=== PATIENT | female | born 1980 | race Caucasian/White ===

== ENCOUNTER 2023-01-31 13:00 | Outpatient (CLI) | payer BC, SELFPAY ==
--- NOTE | 2023-01-31 13:00 | DI.RAD_ITS ---
Exam(s) XR SHOULDER LT COMPLETE 2+V EXAM: XR SHOULDER LT COMPLETE 2+V CLINICAL HISTORY: Left shoulder pain. TECHNIQUE: 2D digital imaging was performed of the left shoulder. Two images were obtained. AP and axillary views were obtained. COMPARISON: No exams were available for comparison FINDINGS: BONES: No acute fracture is present. No bony destructive lesion is seen. JOINTS: No dislocation present. SOFT TISSUE: There is calcification in the soft tissue adjacent to the greater tuberosity suggesting calcific tendinitis. IMPRESSION: Calcific tendinitis. DATA REPOSITORY: RADIATION DOSE DELIVERED:
== END 2023-01-31 13:01 | disposition home or self-care (01) ==
PROVIDERS: Visit Provider Student in an Organized Health Care Education/Training Program
DX: M25.512 Pain in left shoulder (principal); M75.32 Calcific tendinitis of left shoulder
CPT/HCPCS: 73030

== ENCOUNTER 2023-02-20 01:18 | Outpatient (CLI) | payer BC, SELFPAY ==
--- NOTE | 2023-02-20 07:45 | DI.MRI_ITS ---
Exam(s) MR UPPER JOINT LT WO EXAM: MR UPPER JOINT LT WO CLINICAL HISTORY: ? ROTATOR CUFF TEAR,ADHESIVE CAPSULITIS,LT ROTATOR CUFF TEAR,M75.102,M75.02 TECHNIQUE: Multiplanar multisequence MRI of the shoulder was performed. COMPARISON: CR XR SHOULDER LT COMPLETE 2+V from 01/31/2023 FINDINGS: MARROW:There is no evidence of fracture, Hill-Sachs deformity, nor ominous osseous lesions. ROTATOR CUFF MECHANISM: AC JOINT/ACROMIUM: Mild degenerative changes in the AC joint. There is no evidence of os acromiale. Supraspinatus: There are 2 adjacent hypointense foci medially above the most anterior aspect of the g reater tuberosity and corresponding to the calcific densities seen on plain film. These are associat ed with the most anterior aspect of the supraspinatus tendon foot pad insertion site. The larger of these 2 calcifications measures 10 by 5 mm. There is some thickening and increased signal within the tendon at this level but no high-grade tear no retraction of the musculotendinous junction and there is no muscle atrophy. Infraspinatus: Intact. No evidence of tear nor muscle atrophy. Teres Minor: Intact. No evidence of tear nor muscle atrophy. Subscapularis/anterior cuff: Intact. No abnormal signal at the level of the multipennate insertional fibers. No significant tear nor atrophy. BICEPS TENDON: Normal position. Not displaced from the intertubercular groove. No tear. LABRUM: No labral tear identified. No evidence of paralabral cyst. LABROLIGAMENTOUS/CAPSULAR COMPLEX: There is no evidence of avulsion of the anterior-inferior labrum, capsule, inferior glenohumeral liga ment complex nor disruption of the scapular periosteum to suggest the presence of a Bankart lesion. GLENOHUMERAL JOINT: No prominent joint effusion nor obvious loose intra-articular bodies. No chondra l defects. No osteophytes. No degenerative subarticular cysts. No evidence of capsular tear. The in ferior glenohumeral ligament is intact. QUADRILATERAL SPACE: No evidence of mass in the region of the axillary nerve and dorsal circumflex hu meral vessels. Visualized triceps muscle at this level appears unremarkable. IMPRESSION: 1. Findings are consistent with calcific supraspinatus rotator cuff tendinosis/tendinitis. Two adjac ent calcific densities are seen in the most anterior aspect of the supraspinatus tendon adjacent to t he most anterior aspect of the foot pad insertion site on the greater tuberosity. No significant tea r of this tendon evident. No retraction. No fluid in the subacromial-subdeltoid space. 2. Other muscular components of the rotator cuff mechanism appear unremarkable. 3. No evidence of biceps tendon nor labral tears. DATA REPOSITORY:
== END 2023-02-20 01:38 ==
LOC: DI 01:19
PROVIDERS: Visit Provider Student in an Organized Health Care Education/Training Program
DX: M75.02 Adhesive capsulitis of left shoulder (principal); M75.102 Unspecified rotator cuff tear or rupture of left shoulder, not specified as traumatic
CPT/HCPCS: 73221

== ENCOUNTER 2023-05-01 09:44 | Outpatient (CLI) | payer BC, SELFPAY ==
--- NOTE | 2023-05-01 09:00 | DI.RAD_ITS ---
Exam(s) XR SHOULDER LT COMPLETE 2+V EXAM: XR SHOULDER LT COMPLETE 2+V CLINICAL HISTORY: left shoulder pain. TECHNIQUE: 2D digital imaging was performed of the left shoulder. Two images were obtained. AP and Y views were obtained. COMPARISON: CR XR SHOULDER LT COMPLETE 2+V from 01/31/2023 FINDINGS: BONES: No acute fracture is present. No bony destructive lesion is seen. JOINTS: No dislocation present. SOFT TISSUE: There calcifications in the soft tissues adjacent to the humeral head most suggestive of calcific tendinitis. IMPRESSION: Calcific tendinitis. DATA REPOSITORY: RADIATION DOSE DELIVERED:
== END 2023-05-01 09:45 | disposition home or self-care (01) ==
LOC: DIORS 09:44
PROVIDERS: PCP Family Medicine; Referring Provider Family Medicine; Visit Provider Student in an Organized Health Care Education/Training Program
DX: M75.32 Calcific tendinitis of left shoulder (principal); M25.512 Pain in left shoulder
CPT/HCPCS: 73030

== ENCOUNTER 2023-06-21 19:46 | Outpatient (REF) | payer BC, SELFPAY ==
[2023-06-21 18:50] LABS: HCT 42.2 % (36.0-46.0); HGB 14.2 g/dL (11.2-15.7); MCH 29.7 pg (27.0-33.0); MCHC 33.6 % (32.0-36.0); MCV 88 fL (80-95); Platelet Count 374 10^3/uL (130-400); RBC 4.78 10^6/uL (3.93-5.22); RDW 12.8 % (11.7-14.6); RDW-SD 41.5 fL
[2023-06-21 19:10] LABS: Anion Gap 8.6 mmol/L (3-11); BUN 6 mg/dL (7-18); CO2 28.4 mmol/L (21.0-32.0); CREATININE 0.8 mg/dL (0.55-1.02); Calcium 9.3 mg/dL (8.5-10.1); Calculated LDL 131 mg/dL (<100); Chloride 100 mmol/L (98-107); Cholesterol 184 mg/dL (<200); Glucose 98 mg/dL (74-106); HDL Cholesterol 38 mg/dL (40-60); Potassium 4.3 mmol/L (3.5-5.1); Sodium 137 mmol/L (136-145); Triglyceride 78 mg/dL (<150)
[2023-06-21 19:27] LABS: Hemoglobin A1C 5.8 % (<5.7)
== END 2023-06-21 19:47 | disposition home or self-care (01) ==
LOC: NCHCN 19:46
PROVIDERS: PCP Family Medicine; Visit Provider Family Medicine
DX: R53.83 Other fatigue (principal); E66.9 Obesity, unspecified; R79.89 Other specified abnormal findings of blood chemistry; R73.09 Other abnormal glucose
CPT/HCPCS: 80048; 80061; 85027; 83036; 84443

== ENCOUNTER 2023-12-04 14:02 | Outpatient (REF) | payer OTHER, SELFPAY ==
[2023-12-04 15:24] LABS: HCT 39.7 % (36.0-46.0); HGB 13.6 g/dL (11.2-15.7); MCHC 34.3 % (32.0-36.0); MCV 87 fL (80-95); Platelet Count 330 10^3/uL (130-400); RBC 4.54 10^6/uL (3.93-5.22); RDW-SD 41.3 fL; WBC 10.83 10^3/uL (4.4-10.8)
[2023-12-04 15:49] LABS: Hemoglobin A1C 5.9 % (<5.7)
[2023-12-04 16:30] LABS: ESR 11 mm/hr (0-20)
[2023-12-04 16:49] LABS: ALT 21 U/L (14-59); AST 16 U/L (15-37); Albumin 3.8 g/dL (3.4-5.0); Alkaline Phosphatase 102 U/L (46-116); Anion Gap 8.9 mmol/L (3-11); BUN 10 mg/dL (7-18); Bilirubin, Total 0.6 mg/dL (0.2-1.0); C-Reactive Protein 1.44 mg/dL (0.0-0.3); CO2 30.1 mmol/L (21.0-32.0); CREATININE 0.8 mg/dL (0.55-1.02); Calcium 9.4 mg/dL (8.5-10.1); Chloride 102 mmol/L (98-107); Glucose 122 mg/dL (74-106); Potassium 4.4 mmol/L (3.5-5.1); Sodium 141 mmol/L (136-145); Total Protein 7.3 g/dL (6.4-8.2)
[2023-12-04 17:33] LABS: Vitamin D 25 Total 29.8 ng/mL (30-100)
[2023-12-07 13:04] LABS: ANA Interpretation Negative (Negative)
== END 2023-12-04 14:03 | disposition home or self-care (01) ==
LOC: NCHCN 14:02
PROVIDERS: PCP Family Medicine; Visit Provider Family Medicine
DX: M79.7 Fibromyalgia (principal)
CPT/HCPCS: 80053; 82306; 85027; 85652; 83036; 86038; 86140

== ENCOUNTER 2024-05-06 14:08 | Outpatient (REF) | payer OTHER, SELFPAY ==
[2024-05-06 16:15] LABS: *AMPHETAMINES SCREEN URINE Negative (Negative); *BARBITURATES SCREEN URINE Negative (Negative); *BENZODIAZEPINES SCREEN URINE Negative (Negative); Cannabinoids THC Negative (Negative); Cocaine Screen,Urine Negative (Negative); METHADONE URINE SCREEN Negative (Negative); OPIATES URINE SCREEN Negative (Negative); Tricyclic Antidepressants Negative (Negative)
[2024-05-10 06:52] LABS: Methylphenidate 188 ng/mL (Cutoff: 10); Ritalinic Acid 4904 ng/mL (Cutoff: 50)
== END 2024-05-06 14:09 | disposition home or self-care (01) ==
LOC: NCHCN 14:08
PROVIDERS: PCP Family Medicine; Visit Provider Nurse Practitioner Psychiatric/Mental Health
DX: F90.0 Attention-deficit hyperactivity disorder, predominantly inattentive type (principal); Z51.81 Encounter for therapeutic drug level monitoring; Z79.899 Other long term (current) drug therapy
CPT/HCPCS: 80307; 80360

== ENCOUNTER 2024-10-30 17:12 | Outpatient (REF) | payer BC, SELFPAY ==
--- NOTE | 2024-10-30 14:00 | PAPFT_PTH ---
PATIENT: Sharmila Bradford LOC: [facility]#:[id number] AGE/SX: 44/F ROOM: RE10/30/[address]: Dhara Perera V : 1980 BED: DIS: 10/30/2024 SPEC #: [id number] RECD: 10/31/24 12:44 STATUS: AMANDA RELinda #: [id number] SRAVANTHI: 10/30/24 14:[address]: Dhara Perera V DEPT: [facility] Cytology RECD BY: Lupe Savage Tissues: 1 - CX/ENDOCX FOR PAP SMEARS Procedures: PAP THIN PREP/UVM Screening HPV DNA PROBE Comments: [id number] (HPV 16 & 18/45)
== END 2024-10-30 17:13 | disposition home or self-care (01) ==
LOC: NCHCN 17:12
PROVIDERS: PCP Family Medicine; Visit Provider Family Medicine
DX: R39.9 Unspecified symptoms and signs involving the genitourinary system (principal); R82.89 Other abnormal findings on cytological and histological examination of urine
CPT/HCPCS: 88142; 87086; 87624

== ENCOUNTER 2025-06-02 17:15 | Outpatient (REF) | payer BC, SELFPAY ==
[2025-06-02 19:21] LABS: HCT 42.2 % (36.0-46.0); HGB 13.9 g/dL (11.2-15.7)
[2025-06-02 19:39] LABS: Hemoglobin A1C 6.2 % (<5.7)
[2025-06-02 19:55] LABS: Ferritin 215 ng/mL (8-252); TSH (W/Ref FT4) 3.53 uIU/mL (0.36-3.74)
[2025-06-03 18:30] LABS: FSH 4.9 mIU/mL (See Note); LH 2.8 mIU/mL (See Note)
== END 2025-06-02 17:16 | disposition home or self-care (01) ==
LOC: NCHCN 17:15
PROVIDERS: PCP Family Medicine; Visit Provider Family Medicine
DX: E66.9 Obesity, unspecified (principal); R53.82 Chronic fatigue, unspecified
CPT/HCPCS: 82728; 83001; 83002; 83036; 84443; 85014; 85018